=== PATIENT | female | born 1970 | race African-American/Black ===

== ENCOUNTER 2018-12-14 15:33 | Inpatient (IN) ==
[2018-12-14] MEDS ORDERED: TYLENOL PO PRN ×2 (17:20→21:46)
[2018-12-14] MEDS ORDERED: PROTONIX IV ONE (17:20)
[2018-12-14] MEDS ORDERED: PEPCID IV ONE (17:20)
[2018-12-14] MEDS ORDERED: SODIUM CHLORIDE 0.9% INJ ONE ×2 (17:20)
[2018-12-14 18:29] LABS: BASO# 0.02 X1000 (0.0-0.2); BASO% 0.1 % (0.0-0.8); EOS# 0.14 X1000 (0.0-0.7); EOS% 0.9 % (0.0-10.0); HEMATOCRIT 34.4 % (37.0-47.0); HEMOGLOBIN 11.1 g/dL (12.0-16.0); IMM GRAN# 0.07 X1000 (0.0-0.04); IMM GRAN% 0.4 % (0.0-0.5); LYMPH# 2.18 X1000 (1.2-3.4); LYMPH% 13.9 % (20.5-51.1); MCH 25.4 PG (27-31); MCHC 32.3 g/dL (33-37); MCV 78.7 FL (81-99); MONO# 1.03 X1000 (0.11-0.59); MONO% 6.5 % (1.7-9.3); MPV 12.2 FL (7.4-10.4); NEUT% 78.2 % (42.2-75.2); PLT 195 X1000 (130-400); RBC 4.37 XMIL (4.2-5.4); RDW 14.7 % (11.5-14.5); WBC 15.74 X1000 (4.8-10.8)
--- NOTE | 2018-12-14 18:46 | PROVIDER DOCUMENTATION ---
This chart was entered by Gretchen Ferrara Scribe, acting as scribe for Home Hahn MD. HPI-Abdominal Pain/GI Problem <Noe Lazcano - Last Filed: 12/15/18 06:59> - General Source: family (sister) - History of Present Illness-ABD Nature of Presenting Problems: Patient is a 48 year old female who presents with sister for periumbilical abdominal pain. States chest pain and vomiting with abdominal pain. History of IBS. Does not report diarrhea. Abdominal Pain Onset Location: reports: periumbilical Pain Radiation: reports: no radiation Quality of Pain: reports: aching Severity in ED: reports: mild Onset/Duration: reports: gradual Timing: reports: still present Activities at Onset: reports: light activity Associated Symptoms: reports: chest pain, vomiting Bruising or Bleeding Gums?: No Similar Symptoms Previously?: Yes Recently seen or treated by another doctor?: No <Home Hahn - Last Filed: 12/18/18 19:16> - General Chief Complaint: Abdominal Pain Stated Complaint: ABD PAIN Time Seen by Provider: 12/14/18 17:01 Allergies/Adverse Reactions: Patient Allergies Allergy/AdvReac Type Severity Reaction Status Date / Time No Known Allergies Allergy Verified 11/21/17 10:51 Home Medications: Home Medication List Medication Instructions Recorded Confirmed Last Taken Type Clonidine [Catapres] 0.2 mg PO BID 03/28/16 12/14/18 03/28/16 History Omeprazole 40 mg PO DAILY 03/28/16 12/14/18 03/28/16 History Risperidone [Risperdal] 1 mg PO DAILY 03/28/16 12/14/18 03/28/16 History Carvedilol [Coreg] 1 tab PO BID 12/14/18 12/14/18 Unknown History Estrogens, Conjugated [Premarin] 1 tab PO DAILY 12/14/18 12/14/18 Unknown History Furosemide [Lasix] 40 mg PO DAILY 12/14/18 12/14/18 Unknown History Glipizide/Metformin HCl 1 tab PO BID 12/14/18 12/14/18 Unknown History [Glipizide-Metformin 2.5-500 mg] Linaclotide [Linzess] 1 cap PO DAILY 12/14/18 12/14/18 Unknown History Losartan Potassium 50 mg PO DAILY 12/14/18 12/14/18 Unknown History Levofloxacin [Levaquin] 750 mg PO DAILY #7 tab 12/15/18 Unknown Rx Review of Systems - Adult - REVIEW OF SYSTEMS - ADULT ROS:: ROS per family (sister) Constitutional: reports: no symptoms reported. denies: chills Eyes: reports: no symptoms reported Ears, Nose, Mouth & Throat: reports: no symptoms reported Cardiovascular: reports: see HPI, chest pain. denies: irregular heart rate, palpitations Respiratory: reports: no symptoms reported Gastrointestinal: reports: see HPI, abdominal pain (periumbilical), vomiting. denies: diarrhea, nausea Genitourinary: reports: no symptoms reported Musculoskeletal: reports: no symptoms reported Integumentary: reports: no symptoms reported Neurological: reports: no symptoms reported Psychiatric: reports: no symptoms reported Endocrine: reports: no symptoms reported Hematologic/Lymphatic: reports: no symptoms reported Allergic/Immunologic: reports: no symptoms reported All Other Systems: Reviewed and Negative <Home Hahn - Last Filed: 12/18/18 19:16> Past History - Adult - PAST MEDICAL HISTORY-ADULT Review of Records: reports: Nursing Assessment Review, Medications Reviewed, Social history reviewed & non-contributory. Major Childhood Illnesses: reports: denies history Cardiovascular: reports: HTN Respiratory: reports: denies history Gastrointestinal: reports: IBS Obstetrical/Gynecological: reports: denies history Genitourinary: reports: denies history Musculoskeletal: reports: denies history Neurological: reports: cognitive dysfunction (down syndrome) Endocrine/Immune: reports: Diabetes Other Conditions: reports: other (Down Syndrome) - PRIOR SURGERIES/PROCEDURES Surgical/Procedure History: reports: hysterectomy - IMMUNIZATION STATUS Childhood Immunizations: See Nurse Assessment Flu Vaccine: See Nurse Assessment - FAMILY HISTORY Family History: reviewed, not pertinent - SOCIAL HISTORY Smoking: denies Substance Use: denies Living Situation: family <Home Hahn - Last Filed: 12/18/18 19:16> Physical Exam-General - PHYSICAL EXAM-ADULT Initial Vital Signs Reviewed: Yes - CONSTITUTIONAL General Appearance: alert, no apparent distress. negative: lethargic - EYES Eyes: PERRL/EOMI - HEAD, EARS, NOSE, MOUTH & THROAT HENMT: normocephalic/atraumatic, moist mucous membranes, TM abnormal (erythema and drainage to right TM). negative: angioedema - NECK Neck: supple - RESPIRATORY Respiratory: chest non-tender, lungs clear, normal breath sounds. negative: crackles, rhonchi - CARDIOVASCULAR Cardiovascular: normal peripheral pulses, regular rate, rhythm. negative: tachycardia - GASTROINTESTINAL (ABDOMEN) Abdominal Exam: normal bowel sounds, non tender, soft. negative: guarding, rigid - MUSCULOSKELETAL Extremity: normal range of motion, pedal edema (bilateral). negative: deformity, erythema - SKIN Integumentary: normal color, normal turgor, warm/dry. 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, grossly normal, no motor/sensory deficits - PSYCHIATRIC Psych/Mental Status: normal mood/affect, oriented x 3, other (moderat MR) <Home Hahn - Last Filed: 12/18/18 19:16> Progress - PLAN OF CARE/RESULTS Progress/Plan/Lab Results: Vital Signs - 8 hr 12/14/18 15:36 Temperature 97.9 F Pulse Rate 95 H Respiratory Rate 18 Blood Pressure 93/47 O2 Sat by Pulse Oximetry 96 Laboratory Results - last 24 hr 12/14/18 12/14/18 12/14/18 18:04 18:04 18:04 WBC RBC Hgb Hct MCV MCH MCHC RDW Std Deviation Plt Count MPV Immature Gran % (Auto) Neut % (Auto) Lymph % (Auto) [place] % (Auto) Eos % (Auto) Baso % (Auto) Immature Gran # (Auto) Neut # (Auto) Lymph # (Auto) [place] # (Auto) Eos # (Auto) Baso # (Auto) D-Dimer, Quantitative 1.08 H Sodium 138 Potassium 4.1 Chloride 97 L Carbon Dioxide 26 Anion Gap 15 BUN 9 Creatinine 0.7 Estimated GFR/1.73 m2 > 60 BUN/Creatinine Ratio 13 Glucose 152 H Calculated Osmolality 277 Calcium 8.9 Magnesium 1.5 Total Bilirubin 0.60 AST 13 ALT 12 Alkaline Phosphatase 87 Troponin T Dep-E-Rwbiopchfxp Pept Total Protein 7.4 Albumin 4.2 Globulin 3.0 Albumin/Globulin Ratio 1.0 Plasma Lactate 12/14/18 12/14/18 12/14/18 18:04 18:04 18:04 WBC 15.74 H RBC 4.37 Hgb 11.1 L Hct 34.4 L MCV 78.7 L MCH 25.4 L MCHC 32.3 L RDW Std Deviation 14.7 H Plt Count 195 MPV 12.2 H Immature Gran % (Auto) 0.4 Neut % (Auto) 78.2 H Lymph % (Auto) 13.9 L [place] % (Auto) 6.5 Eos % (Auto) 0.9 Baso % (Auto) 0.1 Immature Gran # (Auto) 0.07 H Neut # (Auto) 12.30 H Lymph # (Auto) 2.18 [place] # (Auto) 1.03 H Eos # (Auto) 0.14 Baso # (Auto) 0.02 D-Dimer, Quantitative Sodium Potassium Chloride Carbon Dioxide Anion Gap BUN Creatinine Estimated GFR/1.73 m2 BUN/Creatinine Ratio Glucose Calculated Osmolality Calcium Magnesium Total Bilirubin AST ALT Alkaline Phosphatase Troponin T Ihv-Q-Rthiqgwnhdc Pept 171 Total Protein Albumin Globulin Albumin/Globulin Ratio Plasma Lactate 1.5 12/14/18 18:04 WBC RBC Hgb Hct MCV MCH MCHC RDW Std Deviation Plt Count MPV Immature Gran % (Auto) Neut % (Auto) Lymph % (Auto) [place] % (Auto) Eos % (Auto) Baso % (Auto) Immature Gran # (Auto) Neut # (Auto) Lymph # (Auto) [place] # (Auto) Eos # (Auto) Baso # (Auto) D-Dimer, Quantitative Sodium Potassium Chloride Carbon Dioxide Anion Gap BUN Creatinine Estimated GFR/1.73 m2 BUN/Creatinine Ratio Glucose Calculated Osmolality Calcium Magnesium Total Bilirubin AST ALT Alkaline Phosphatase Troponin T < 0.010 Ozx-Z-Bfhbwsydcuy Pept Total Protein Albumin Globulin Albumin/Globulin Ratio Plasma Lactate Orders Category Date Time Status Saline Loc NOW Care 12/14/18 17:17 Active CHEST-2 VIEWS [RAD] Stat Exams 12/14/18 17:[address] ABD/PELVIS W/IV CONT ONLY [CT] Stat Exams 12/14/18 17:19 Completed BLOOD CULTURE [BLDCUL] Stat Lab 12/14/18 20:32 Ordered CBC WITH ELECTRONIC DIFF [HEME] Stat Lab 12/14/18 18:04 Completed COMPREHENSIVE METABOLIC PANEL [CHEM] Stat Lab 12/14/18 18:04 Completed D-DIMER [COAG] Stat Lab 12/14/18 18:04 Completed LACTATE, PLASMA [CHEM] Stat Lab 12/14/18 18:04 Completed LACTATE, PLASMA [CHEM] Stat Lab 12/14/18 20:32 Uncollected MAGNESIUM [CHEM] Stat Lab 12/14/18 18:04 Completed PRO B-NATRIURETIC PEPTIDE Stat Lab 12/14/18 18:04 Completed TROPONIN T Stat Lab 12/14/18 18:[address] W/POSS RFLX CULT [URINALYSIS] Stat Lab 12/14/18 20:32 Received Acetaminophen [Tylenol] Med 12/14/18 17:20 Active 650 mg PO Q6H PRN PRN Azithromycin 500 mg/Ns [Zithromax 500 mg/Ns] Med 12/14/18 20:33 Active 500 mg in 250 ml IV NOW CefTRIAXONE [Rocephin] 1 gm Med 12/14/18 20:32 Active 0.9% Sodium Chloride Inj [Ns] 50 ml IV NOW Famotidine [Pepcid] Med 12/14/18 17:20 Discontinued 20 mg IV NOW ONE Pantoprazole [Protonix] Med 12/14/18 17:20 Discontinued 40 mg IV NOW ONE Sodium Chloride 0.9% Med 12/14/18 17:20 Discontinued 10 ml INJ NOW ONE Sodium Chloride 0.9% Med 12/14/18 17:20 Discontinued 5 - 10 ml INJ NOW ONE EKG [EKG] Stat Ther 12/14/18 17:17 Ordered Assumed care from Dr. Hahn with plan for disposition pending CXR and CT. CT a/p c/w pna. CXR c/w pna also. Plan for admission. Result Diagrams: 12/14/18 18:04 12/14/18 18:04 <Noe Lazcano - Last Filed: 12/15/18 06:59> - PLAN OF CARE/RESULTS Progress/Plan/Lab Results: Vital Signs - 8 hr 12/14/18 15:36 Temperature 97.9 F Pulse Rate 95 H Respiratory Rate 18 Blood Pressure 93/47 O2 Sat by Pulse Oximetry 96 Result Diagrams: 12/14/18 18:04 12/14/18 18:04 - REASSESSMENT Reassessment #1 Time Reassessed: 18:45 Status: unchanged (Leukocytosis and elev d-dimer: CXR and CMP not back yet.) <Home Hahn - Last Filed: 12/18/18 19:16> Departure - Departure Date of Disposition Decision: 12/14/18 Time of Disposition Decision: 20:38 Certified Medical Emergency: Emergent <Noe Lazcano - Last Filed: 12/15/18 06:59> - Departure Certified Medical Emergency: Emergent - Critical Care Note This patient required my direct & personal management of CC.: No <Home Hahn - Last Filed: 12/18/18 19:16> - Departure DIAGNOSIS: PNA (pneumonia) Qualifiers: Pneumonia type: due to unspecified organism Laterality: unspecified laterality Lung location: unspecified part of lung Qualified Code(s): J18.9 - Pneumonia, unspecified organism Disposition: ADMITTED INPATIENT 09 Condition: Stable Attestation - Physician/ CHERYL Attestation The physician spent face to face time with patient:: Yes Advanced Practice Provider documentation review:: Supervising physician onsite and consulted in the evaluation and care of this patient. The physician did have a face to face encounter with the patient. <Home Hahn - Last Filed: 12/18/18 19:16> This chart was documented by the indicated scribe, (Gretchen Ferrara Scribe) and accurately reflects the services I performed and decisions made by Jovani wadsworth Robert W., MD, as attested by the provider's signature.
[2018-12-14 18:50] LABS: AGAP 15; ALBUMIN 4.2 g/dL (3.5-5.0); ALKALINE PHOSPHATASE 87 U/L (32-104); BUN 9 mg/dL (8-22); CALCIUM 8.9 mg/dL (8.8-10.2); CHLORIDE 97 mmol/L (98-107); COSMO 277; CREATININE 0.7 mg/dL (0.5-0.9); ESTIMATED GFR > 60; GLUCOSE 152 mg/dL (70-104); GOT 13 U/L (10-30); GPT 12 U/L (10-36); POTASSIUM 4.1 mmol/L (3.5-5.1); SODIUM 138 mmol/L (136-145); TCO2 26 mmol/L (25-35); TOTAL PROTEIN 7.4 g/dL (6.3-8.3)
--- NOTE | 2018-12-14 20:15 | Diag Imaging Result Doc PS360 ---
CHEST-2 VIEWS - 12/14/2018 INDICATION: cp COMPARISON: 11/21/2017 FINDINGS: Stable severe cardiomegaly. Pulmonary vascularity is slightly distended. No significant infiltrates or edema. Stable chronically distended esophagus. No pneumothorax or pleural effusion. IMPRESSION: No change from prior. Electronically signed by Panchito Mitchell 12/14/2018 8:12 PM
--- NOTE | 2018-12-14 20:20 | Diag Imaging Result Doc PS360 ---
CT ABD/PELVIS W/IV CONT ONLY - 12/14/2018 INDICATION: cp COMPARISON: None FINDINGS: There is significant infiltrate mainly in the left lower lobe. There is cardiomegaly. The esophagus is very distended. There are cholecystectomy clips. The liver, pancreas, spleen, adrenals, and kidneys are normal. Mild constipation. No bowel obstruction or inflammation. Uterus is absent. Urinary bladder and rectum are normal. There are moderate degenerative changes of the spine. No acute or suspicious bony lesion. IMPRESSION: 1. Significant left lower lobe infiltrate indicating pneumonia. Cardiomegaly. 2. Known achalasia. 3. Constipation. This exam was performed using automated exposure control, adjustment of mA or kV according to patient size, and/or use of iterative reconstruction technique Electronically signed by Panchito Mitchell 12/14/2018 8:18 PM
[2018-12-14] MEDS ORDERED: ROCEPHIN 1 GM in NS 50 ML IV ONE (20:32)
[2018-12-14] MEDS ORDERED: ZITHROMAX 500 MG/NS 500 MG/250 ML IVPB IV ONE (20:33)
[2018-12-14 20:49] LABS: BILIRUBIN URINE NEGATIVE (NEGATIVE); BLOOD URINE NEGATIVE (NEGATIVE); CLARITY CLEAR (CLEAR); COLOR YELLOW; GLUCOSE URINE NEGATIVE (NEGATIVE); KETONE URINE NEGATIVE (NEGATIVE); LEUKOCYTES URINE TRACE (NEGATIVE); NITRITE URINE NEGATIVE (NEGATIVE); PROTEIN URINE NEGATIVE (NEGATIVE); UROBILINOGEN URINE NORMAL
[2018-12-14 20:53] LABS: URINE BACTERIA NEGATIVE /HFP; URINE EPITHELIAL CELLS <10 /HPF (<10); URINE RBC <10 /HPF (<10); URINE SOURCE CLEAN CATCH; URINE WBC <10 /HPF (<10)
[2018-12-14] MEDS: DUONEB (A & A) INH SCH (23:12)
[2018-12-15] MEDS: DUONEB (A & A) INH SCH ×3 (05:14→11:32)
[2018-12-15] MEDS ORDERED: CATAPRES PO SCH (09:15)
[2018-12-15] MEDS ORDERED: LASIX PO SCH (09:15)
[2018-12-15] MEDS ORDERED: GLUCOTROL PO SCH ×2 (09:15→17:00)
[2018-12-15] MEDS ORDERED: COREG PO SCH (09:15)
[2018-12-15] MEDS ORDERED: PREMARIN PO SCH (09:15)
[2018-12-15] MEDS ORDERED: COZAAR PO SCH (09:15)
[2018-12-15] MEDS ORDERED: RISPERDAL PO SCH (09:15)
[2018-12-15] MEDS ORDERED: LINZESS PO SCH (09:15)
[2018-12-15] MEDS ORDERED: CLINORIL PO SCH (09:30)
[2018-12-15] MEDS ORDERED: HUMULIN R (PARKWAY) SUBQ SCH (11:00)
--- NOTE | 2018-12-15 11:37 | HISTORY AND PHYSICAL ---
PRIMARY CARE PHYSICIAN: Dr. Bishop. CHIEF COMPLAINT: Abdominal pain with vomiting, shortness of breath and chest pain. HISTORY OF PRESENT ILLNESS: Ms Lee is a 48-year-old female who has a past medical history of diabetes, hypertension, IBS, and Down syndrome. Family member states that the patient started complaining of abdominal pain. She also had some dyspnea where her respirations appeared labored and some chest pain. The patient kept stating she just did not feel well, so they decided to bring her to the ER at that time. The patient has been having stomach pain for greater than a week. Prior to this, she was having some sinus drainage for the past 2 weeks. Family member stated she also noticed that she was having more edema to her bilateral lower extremities. The patient has been complaining of pain to her right ear. Family member states for the sinus infection she was giving her Robitussin DM and p.r.n. Tylenol. She did have an episode of vomiting a few days ago. The patient has been very weak. Family member states she is not talking very much and when she did talk, she stated that she just wanted to rest because she felt tired. Family member denies any fever or chills, any dysuria or hematuria. Laboratory findings in the ER show a white blood cell count of 15.74, hemoglobin 11.1, hematocrit 34.4, a D-dimer of 1.08, glucose of 152, plasma lactate of 1.5. Chest x-ray shows no changes from prior exam. CT scan shows significant left lower lobe infiltrate indicating pneumonia, and constipation. PAST MEDICAL HISTORY: Diabetes, hypertension, constipation, Down syndrome, IBS. PAST SURGICAL HISTORY: Hysterectomy, fibrocystic cyst removed from the right breast, esophageal dilation. FAMILY HISTORY: Mother of lung cancer. Father of stomach cancer. The patient has several brothers and sisters, they are all positive for hypertension and a couple of her brothers and sisters have diabetes. SOCIAL HISTORY: The patient lives with her sister in [place]. [facility]. She denies any alcohol, tobacco, or drug abuse. ALLERGIES: No known drug allergies. HOME MEDICATIONS: 1. Omeprazole 40 mg p.o. daily. 2. Clonidine 0.2 mg p.o. b.i.d. 3. Risperdal 1 mg p.o. daily. 4. Premarin 1.25 mg p.o. daily. 5. Linzess 145 mcg p.o. daily. 6. Sulindac 150 mg p.o. daily. 7. Glipizide/metformin HCL 2.5/500, one tablet p.o. b.i.d. 8. Coreg 6.25 mg p.o. b.i.d. 9. Lasix 40 mg p.o. daily. 10. Losartan potassium 50 mg p.o. daily. LABORATORY DATA AND DIAGNOSTICS: White blood cell count 15.74, hemoglobin 11.1, hematocrit 34.4, MCV 78.7, MCH 25.4, MCHC 32.3, platelet count 195,000. D-dimer 1.08. Sodium 138, potassium 4.1, chloride 97, carbon dioxide 26, anion gap 15, BUN 9, creatinine is 0.7, GFR is greater than 60, glucose 152, calcium 8.9. Magnesium 1.5. Total bilirubin 0.6. AST is 13, ALT 12, alkaline phosphatase 87. Troponin less than 0.01. ProBNP is 171. Plasma lactate 1.5 with a repeat of 1. Urinalysis is negative. Chest x-ray shows no change from prior exam, which shows cardiomegaly. No pneumothorax or pleural effusion. No significant infiltrates or edema. CT of the abdomen and pelvis shows significant left lower lobe infiltrate indicating pneumonia, and cardiomegaly, known achalasia and constipation. REVIEW OF SYSTEMS: A 10 point review of systems has been obtained and all are negative except what is stated above in the HPI. PHYSICAL EXAMINATION: VITAL SIGNS: Temperature 98.3 degrees, pulse rate 88, respiratory rate 20, blood pressure is 151/90, O2 saturations 96% on room air. Weight is 212 pounds. Height is 5 feet 8 inches. GENERAL: This is a 48-year-old female. She is lying in the hospital bed. She is in no acute distress. She is well nourished and well developed. HEENT: Atraumatic, normocephalic. Pupils equal, round, reactive to light. Mucous membranes are moist. There is some drainage noted to the right earlobe area from the internal ear structure, the drainage is dried to the skin. NECK: Supple. No lymphadenopathy. Trachea is midline. No JVD. No thyromegaly or bruits. CARDIOVASCULAR: Regular rate and rhythm. No murmurs, gallops, or rubs appreciated. RESPIRATORY: Lung sounds are clear. Equal chest excursion. Respirations are nonlabored. No accessory muscle usage. GASTROINTESTINAL: Abdomen is soft, nontender, nondistended. Bowel sounds are present x4. NEUROLOGIC: The patient is awake, alert, and oriented. She is able to follow all commands appropriately. Cranial nerves 2-12 intact. MUSCULOSKELETAL: Full distal strength noted. No abnormalities. No deformities. EXTREMITIES: No clubbing, no cyanosis. Trace edema noted to the bilateral lower extremities. DP and PT pulses are present and palpable. SKIN: Warm, dry, and intact with no rashes, bruises or diaphoresis. ASSESSMENT AND PLAN: 1. Pneumonia possibly aspiration. We admitted this patient to the medical floor. We placed her on IV antibiotics of Rocephin and azithromycin. We have restarted all her home medications, started her on a diet. We will repeat labs and chest x-ray in the morning. 2. Otitis externa. The patient does have drainage noted from her right ear. This was assessed in the ER and there was some erythema noted to the tympanic membrane. We started this patient on IV antibiotics for her pneumonia. This should cover this acute infection. 3. Diabetes. Place this patient on fingerstick blood sugars before meals and at bedtime. We are going to provide her with sliding scale insulin as needed per protocol. I have also started her home blood sugar medications. 4. Hypertension. I have restarted patient's home medications and we will monitor her vital signs. 5. Down syndrome. The patient has several medications that she takes at home for her Down syndrome. I have restarted these medications. She has a very supportive family. They are at the bedside. We have admitted this patient to the medical floor. We are going to repeat her labs in the morning. We are going to repeat her chest x-ray. We started her on IV antibiotics and restart all her home medications. We are going to be checking her blood sugars and checking her vital signs. All other treatment pending hospital course and lab data. Dictated by YADI Coley for Tatiana Byrd MD cc: MD Dr. Dario Sauer
[2018-12-15 12:09] VITALS: BP 137/90
--- NOTE | 2018-12-15 13:33 | HISTORY AND PHYSICAL ---
ADDENDUM: This is a 48-year-old female, who has been admitted to the hospital because her CT scan of the abdomen showed infiltrate, although chest x-ray was not indicative of any pneumonia. She had abdominal pain on presentation that has now resolved. I discussed the patient in detail with the nurse practitioner, Vanessa Burger, and agree with her assessment. cc: MD Jed Sauer MD
--- NOTE | 2018-12-15 14:15 | DISCHARGE SUMMARY ---
ADMISSION DATE: 12/14/2018 DISCHARGE DATE: 12/15/2018 PRIMARY CARE PHYSICIAN: Dr. Bishop. DISCHARGE DIAGNOSES: 1. Left lower lobe pneumonia. 2. Abdominal pain. 3. Diabetes mellitus that is type 2. 4. Hypertension. 5. History of Down syndrome. HOSPITAL COURSE: Ms. Lee is a 48-year-old female who has history of diabetes, hypertension, and irritable bowel syndrome, along with Down syndrome. She was seen at the emergency room with periumbilical abdominal pain at which time CT scan of the abdomen and pelvis was done that showed left lower lobe infiltrate, because of which she was admitted to the hospital for further care. I saw the patient, and she is clinically alert and oriented with no significant illness on clinical exam. She feels better and does not have any abdominal pain anymore. She actually wants to go home, and therefore, we are going to be discharging her home today. She was given ceftriaxone along with azithromycin here at the hospital, but I am going to discharge her on oral levofloxacin. DISCHARGE MEDICATIONS: 1. Levofloxacin 750 mg orally once daily for 7 days. 2. Carvedilol 6.25 mg orally twice daily. 3. Clonidine 0.2 mg orally twice daily. 4. Premarin 1.25 mg orally once daily. 5. Furosemide 40 mg orally once daily. 6. Glipizide/metformin 2.5 mg/500 mg orally twice daily. 7. Linzess 145 mcg orally once daily. 8. Losartan 50 mg orally once daily. 9. Risperdal 1 mg orally once daily. 10. Omeprazole 40 mg orally once daily in the morning. FOLLOWUP: She will follow with Dr. Bishop in approximately 1 week. cc: MD Jed Sauer MD
[2018-12-15] MEDS ORDERED: GLUCOPHAGE PO SCH (17:00)
[2018-12-15] MEDS ORDERED: ROCEPHIN 1 GM in NS 50 ML IV SCH (20:30)
[2018-12-15] MEDS ORDERED: ZITHROMAX 500 MG/NS 500 MG/250 ML IVPB IV SCH (21:30)
[2018-12-16] MEDS ORDERED: NON-FORMULARY MED PO SCH (09:00)
== END 2018-12-15 12:30 | disposition home or self-care (01) | DRG 195 ==
LOC: P.ED 15:33 → SUATTDRO 21:36 → P.MEDSURG 21:36
PROVIDERS: ADMIT Internal Medicine; ATTEND Internal Medicine